=== PATIENT | male | born 1995 | race Caucasian/White ===

== ENCOUNTER 2024-10-07 11:32 | Outpatient (AMB) | payer MEDICARE, SELFPAY ==
--- NOTE | 2024-10-07 11:44 | A.OFFPC_ITS ---
Vital Signs 10/07/24 11:52 Height 5 ft 10.55 in Weight 159 lb 4 oz BMI 22.5 BP 130/68 Blood Pressure Location Lt brachial Position Sitting Respiration 12 Pulse 69 Pulse Source Pulse Oximeter Temp 98.7 F Temp Source Oral Pulse Oximetry (%) 99 Oxygen Delivery Method Room Air Intake Visit Reasons: referral to pain clinic Intake Note: New patient visit Senior Premium Auditor Required: No Allergies psych meds Adverse Reaction (Unknown, Uncoded 10/07/24 11:50) damage to brain receptors Medication List - Last Reconciled 10/07/24 by Joan Navarro PA-C No Known Home Meds Tobacco use date assessed: 10/07/24 Dental Screening Dental Screen Date: 10/07/24 Did you have a dental visit in the last 12 months?: Yes Did you have a dental problem in the last 6 months where you did not have access to dental care?: No Was dental information given to patient?: Patient has dentist HPI referral to pain clinic HPI Details Pt is a 29 year old male who presents today to [facility]. He reports a significant past medical history of tardive dyskinesia and tardive akathisia. There are a couple urgent care like notes that are scanned in from [facility] that do shows that he also has a significant past medical history of schizophrenia, substance abuse, depression, anxiety, He states that he mostly made this appointment so he could get a referral to Neurology and pain management. He states that he was diagnosed with tardive dyskinesia and tardive akathisia in 2019 when he started feeling weak, rigidity, pain and spastic, involuntary movements. He had an EMG in [place] he states that also showed peripheral neuropathy. He states that he was previously managed with a muscle relaxant, Flexeril, to use as needed. He states that he would like to use this again as he does not take this every day but he would like to have it on hand and he would like to see the specialists. He denies any other acute concerns today. He states that his symptoms remain overall stable. He denied any significant past medical history of mental health disorder. [facility] Family History (Updated 10/07/24 @ 12:05 by Pascale Lemons CMA) Maternal Grandfather Alcoholism Stomach cancer Father Diabetes Paternal Grandfather Skin cancer Mother Depression Sister Anxiety Other FH: mental illness Substance abuse Social History Housing: Apartment Patient Tobacco Use Status: Former Tobacco user Cigarette Packs Per Day: 2 Years Smoked: 8 e-Cigarette/Vaping Use: Currently Using service: No Current occupational status: disabled Cognitive needs: No Hearing needs: No Vision needs: No Questionnaire PHQ-9 Over the last 2 weeks, how often have you been bothered by any of the following problems? 1. Little interest or pleasure in doing things: more than half the days 2. Feeling down, depressed, or hopeless: more than half the days 3. Trouble falling or staying asleep, or sleeping too much: several days 4. Feeling tired or having little energy: more than half the days 5. Poor appetite or overeating: more than half the days 6. Feeling bad about yourself - or that you are a failure or have let yourself or your family down: not at all 7. Trouble concentrating on things, such as reading the newspaper or watching television: more than half the days 8. Moving or speaking so slowly that other people could have noticed. Or the opposite - being so fidgety or restless that you have been moving around a lot more than usual: more than half the days 9. Thoughts that you would be better off or of hurting yourself in some way: not at all Total score: 13 Depression Screening Interpretation: Positive Depression Screening Follow-up: Existing condition and Follow-up Visit Requested Depression Screening Done: Yes [id number] - PHQ-9 Billing: Yes Source: Developed by Drs. Diego Cruz, Jojo Ball, Link Stroud and colleagues, with an educational maco from [employer]. Thrive Questionnaire Date Thrive assessed: 09/30/24 I am a: Patient What is your living situation today?: I have a steady place to live Within the past 12 months, did the food you bought not last and you didn't have the money to get more?: Sometimes True Within the past 12 months, did you worry whether your food would run out before you got money to buy more?: Sometimes True Do you have trouble paying for medicines?: Yes Do you have trouble getting transportation to medical appointments?: No Do you have trouble paying your heating and electricity bill?: No Do you have trouble taking care of your child, family member or friend?: No Do you have trouble with day-to-day activities such as bathing, preparing meals, shopping, managing finances, etc.?: Yes Are you currently unemployed and looking for a job?: No Are you interested in more education?: Yes Please select the resources that you would like help with: None Currently or been in a relationship where the following occur: I choose not to answer THRIVE Score: 2 AUDIT C Alcohol Use Questionnaire (AUDIT-C) 1. How often do you have a drink containing alcohol?: 2-4 times a month 2. How many drinks containing alcohol do you have on a typical day when you are drinking?: 1 or 2 3. How often do you have six or more drinks on one occasion?: Never Total Score: 2 Score Reviewed/Action Taken: Yes GERI-7 AMB Questionnaire GERI-7 Feeling nervous, anxious, or on edge: 2 = More than half the days Not being able to stop or control worryin = More than half the days Worrying too much about different things: 2 = More than half the days Trouble relaxin = More than half the days Being so restless that it is hard to sit still: 2 = More than half the days Becoming easily annoyed or irritable: 1 = Several days Feeling afraid as if something awful might happen: 2 = More than half the days Total GERI-7 score (0-4 normal; 5-9 mild; 10-14 moderate; 15-21 severe): 13 Source: Developed by Drs. Diego Cruz, Jojo Ball, Link Stroud and colleagues, with an educational maco from [employer]. GERI-7 Assessment Billing GERI-7 Assessment Tool: GERI-7 Assessment [id number] Physical exam (Primary Care) Vital Signs: Last Vital Signs Temp 98.7 F 10/07/24 11:52 Pulse 69 10/07/24 11:52 Resp 12 10/07/24 11:52 BP 130/68 10/07/24 11:52 Pulse Ox 99 10/07/24 11:52 Oxygen Delivery Method Room Air 10/07/24 11:52 BMI result Body Mass Index 22.5 Tobacco/Smoking Status: Tobacco use Status Tobacco use date assessed 10/07/24 10/07/24 11:56 Patient Tobacco Use Status Former Tobacco user 10/07/24 11:56 e-Cigarette/Vaping Use Currently Using 10/07/24 11:56 PHQ-9: PHQ-9 Score PHQ-9: Total score 13 10/07/24 11:59 Depression Screening Interpretation: Positive Depression Screening Follow-up: Existing condition and Follow-up Visit Requested Thrive Assessment: Date of Thrive Assessment Date Thrive assessed 09/30/24 10/07/24 11:44 Currently or been in a relationship where the following occur: I choose not to answer Const Orientation/consciousness: patient oriented x3 HENMT Ears: hearing grossly normal bilaterally Neck Thyroid: Thyroid normal Lymphatic: no lymphadenopathy noted Resp Auscultation: clear to auscultation bilaterally Cardio Rate: regular rate Rhythm: regular rhythm Heart sounds: S1 normal heart sound present and S2 normal heart sound present GI Inspection: Yes normal to inspection Palpation (GI): Soft to palpation and Other GI palpation findings present (nontender, no cva tenderness) Auscultation: normoactive bowel sounds Rectal Exam - Male: Yes deferred Skin General skin exam: no rashes or lesions noted Neuro General: patient oriented x3, gait normal and no focal motor deficits Coding Level of Care Code New Pt Level 3 (96305) Complex EM visit Add On G2211 Diagnoses Tardive akathisia G25.71 Tardive dyskinesia G24.01 History of substance abuse F19.11 Generalized anxiety disorder F41.1 Schizophrenia F20.9 Major depression, chronic F32.9 Additional Codes PHQ-9 - 02284 - PHQ-9 Billing: Yes ([id number]) GERI-7 Assessment Billing - GERI-7 Assessment Tool: GERI-7 Assessment [id number] ([id number]) Assessment & Plan Assessment & Plan (1) Tardive akathisia: Code(s): G25.71 - Drug induced akathisia Category: Medical Plan: This is listed in the chart from [facility] ER record. I have referred him to Neurology and pain management. (2) Tardive dyskinesia: Code(s): G24.01 - Drug induced subacute dyskinesia Category: Medical Plan: As above. (3) History of substance abuse: Code(s): F19.11 - Other psychoactive substance abuse, in remission Category: Medical Plan: Denies (4) Generalized anxiety disorder: Code(s): F41.1 - Generalized anxiety disorder Category: Medical Plan: PHQ-9 and GERI-7 scores are high. We will review further at follow up. Denies any SI/HI. Overall feels well. (5) Schizophrenia: Code(s): F20.9 - Schizophrenia, unspecified Category: Medical Plan: As above (6) Major depression, chronic: Code(s): F32.9 - Major depressive disorder, single episode, unspecified Category: Medical Plan: As above. Patient wants to hold off on behavioral health consult at this time Orders: Orders Complete Blood Count Auto Diff 10/07/24 G2. - Drug induced subacute dyskinesia, . - Drug induced akathisia Microalbumin, Random (w Creat) 10/07/24 G2. - Drug induced subacute dyskinesia, G2. - Drug induced akathisia [place] Reflex Titer and Pattern 10/07/24. - Drug induced subacute dy skinesia, . - Drug induced akathisia Comprehensive [place]. Panel Fast 10/07/24. - Drug induced subacute dyskinesia, G2. - Drug induced akathisia UA CC w/rflx Micro + Cult 10/07/24 G2. - Drug induced subacute dyskinesia, G2. - Drug induced akathisia, Z13.220 - Encounter for screening for lipoid disorders TSH reflex Free T4 10/07/24 G24. - Drug induced subacute dyskinesia, G2.71 - Drug induced akathisia Erythrocyte Sedimentation Rate 10/07/24 G2. - Drug induced subacute dyskinesia, G2. - Drug induced akathisia Lipid Panel 10/07/24 G2. - Drug induced subacute dyskinesia, G2. - Drug induced akathisia Lyme IgG/IgM w/reflex to WB 10/07/24 G2. - Drug induced subacute dyskinesia, G25.71 - Drug induced akathisia Magnesium 10/07/24 G2. - Drug induced subacute dyskinesia, G2.71 - Drug induced akathisia Vitamin B12 and Folate 10/07/24 G2. - Drug induced subacute dyskinesia, G25.71 - Drug induced akathisia Referrals Neurology Referral - Drug induced subacute dyskinesia, G2. - Drug induced akathisia Pain Management Referral G24.01 - Drug induced subacute dyskinesia, G25.71 - Drug induced akathisia Medications: New cyclobenzaprine 10 mg PO BEDTIME PRN 30 tabs 3RF muscle spasm
[2024-10-07 11:52] VITALS: BP 130/68; PULSE 69; RESP 12; TEMP 37.1; O2SAT 99; BMI 22.5
== END 2024-10-07 12:08 | disposition home or self-care (01) ==
LOC: HO.HMCFM 11:33
PROVIDERS: PCP Physician Assistant; Visit Provider Physician Assistant
DX: G25.71 Drug induced akathisia (principal); G24.01 Drug induced subacute dyskinesia; F19.11 Other psychoactive substance abuse, in remission; F20.9 Schizophrenia, unspecified; F41.1 Generalized anxiety disorder; F32.9 Major depressive disorder, single episode, unspecified

== ENCOUNTER → 2024-10-07 11:32 | Outpatient (BNVA) | payer MEDICARE, SELFPAY | PROVIDERS: PCP Physician Assistant; Visit Provider Physician Assistant | DX: G25.71 Drug induced akathisia (principal); G24.01 Drug induced subacute dyskinesia; F41.1 Generalized anxiety disorder; F19.11 Other psychoactive substance abuse, in remission; F20.9 Schizophrenia, unspecified; F32.9 Major depressive disorder, single episode, unspecified | CPT/HCPCS: 96127; 99202 ==

== ENCOUNTER 2024-10-07 12:38 | Outpatient (REF) | payer MEDICARE, SELFPAY ==
[2024-10-07 14:14] LABS: MANUAL DIFF FLAG NO
[2024-10-07 14:23] LABS: Hematocrit 47.8 % (42.0-52.0); Hemoglobin 17.1 g/dl (14.0-18.0); Imm Gran Abs Auto 0.03 X10*3/uL (0.00-0.03); Imm Gran Pct Auto 0.4 % (0.0-0.4); Lymphocytes Absolute Auto 1.3 X10*3/uL (1.2-4.9); Mean Corpuscular HGB Conc 35.8 g/dl (31.0-36.0); Mean Corpuscular Hemoglobin 29.9 pg (27.0-33.0); Mean Corpuscular Volume 83.6 fL (80.0-98.0); NRBC Abs Auto 0.000 X10*3/uL (0.0-0.012); NRBC Pct Auto 0.0 /100WBC (0.0-0.2); Platelet Count 187 X10*3/uL (160-400); Red Blood Count 5.72 X10*6/uL (4.60-5.80); White Blood Count 6.7 X10*3/uL (4.8-10.8)
[2024-10-07 14:52] LABS: Alanine Aminotransferase 32 U/L (0-40); Albumin Level 5.7 g/dL (3.5-5.0); Alkaline Phosphatase 69 U/L (39-117); Anion Gap 13 (12-20); Aspartate Amino Transferase 32 U/L (5-37); Blood Urea Nitrogen 10 mg/dL (9-16); Calcium 9.8 mg/dL (8.4-10.2); Carbon Dioxide 29 mmol/L (22-29); Chloride 104 mmol/L (96-108); Cholesterol 200 mg/dL (<200); Estimated Glomerular Filt Rate > 60; HDL Cholesterol 70 mg/dL (>40); Magnesium 2.2 mg/dL (1.6-2.6); Potassium 4.0 mmol/L (3.3-5.1); Sodium 142 mmol/L (135-145); Total Protein 8.3 g/dL (6.5-8.0); Triglycerides 63 mg/dL (<150)
[2024-10-07 15:03] LABS: Folate 9.7 ng/mL (> or = 4.0); Vitamin B12 231 pg/mL (200-900)
[2024-10-07 17:51] LABS: Appearance Urine Clear; Glucose Urine UA Negative (Negative); PH 7.5 (5.0-9.0); Specific Gravity - Urine 1.010 (1.005-1.025)
[2024-10-07 18:31] LABS: Microalbum/Creatinine Ratio Ur 15.9 ug/mg cr (<30)
[2024-10-08 10:50] LABS: Lyme Abs Screen <0.90 index
[2024-10-11 11:43] LABS: Anti Nuclear Antibody Screen NEGATIVE (NEGATIVE)
== END 2024-10-07 12:39 | disposition home or self-care (01) ==
LOC: HO.WFDLDS 12:38
PROVIDERS: Visit Provider Physician Assistant
DX: Z13.220 Encounter for screening for lipoid disorders (principal); G25.71 Drug induced akathisia; G24.01 Drug induced subacute dyskinesia
CPT/HCPCS: 36415; 80053; 80061; 81003; 82043; 82570; 82607; 82746; 83735; 84443; 85025; 85652; 86038; 86617; 86618

== ENCOUNTER 2024-11-11 10:52 | Outpatient (AMB) | payer MEDICARE, SELFPAY ==
--- NOTE | 2024-11-11 11:04 | MHC.PC.OV ---
Vital Signs 11/11/24 11:05 Height 5 ft 10.55 in Weight 160 lb 4 oz BMI 22.6 BP 128/72 Blood Pressure Location Lt brachial Position Sitting Respiration 14 Pulse 58 Pulse Source Pulse Oximeter Pulse Oximetry (%) 100 Oxygen Delivery Method Room Air Intake Visit Reasons: MAWV 1 Month Intake Note: One month follow up Director Of Online Merchandising Required: No Allergies psych meds Adverse Reaction (Unknown, Uncoded 10/07/24 11:50) damage to brain receptors Tobacco use date assessed: 11/11/24 Dental Screening Dental Screen Date: 10/07/24 HPI MAWV 1 Month HPI Details Pt is a 29 year old male who presents today for a follow up. He reports a significant past medical history of tardive dyskinesia and tardive akathisia. There are a couple urgent care like notes that are scanned in from [facility] that do shows that he also has a significant past medical history of schizophrenia, substance abuse, depression, anxiey, Neuro: He states that he was diagnosed with tardive dyskinesia and tardive akathisia in 2019 when he started feeling weak, rigidity, pain and spastic, involuntary movements. He had an EMG in [place] he states that also showed peripheral neuropathy. Msk: He states that he was previously managed with a muscle relaxant, Flexeril, to use as needed. GI: He states that for 5 years he has loose stools every morning, inability to gain weight and decreased appetite. He states his weight is overall stable. He states when it initially presented he lost 50 lbs and had a full work up at [facility]. He had a double endoscopy and was told everything was ok. He states he has had CTs but does not recall of the abdomen. He states he had labs but does not recall testing for what in particular. No blood in the stool. No vomiting but he does get nauseous. He would like to see GI for this. He denied any significant past medical history of mental health disorder. [facility] Family History (Updated 10/07/24 @ 12:05 by Pascale Lemons CMA) Maternal Grandfather Alcoholism Stomach cancer Father Diabetes Paternal Grandfather Skin cancer Mother Depression Sister Anxiety Other FH: mental illness Substance abuse Social History Housing: Apartment Patient Tobacco Use Status: Former Tobacco user Cigarette Packs Per Day: 2 Years Smoked: 8 e-Cigarette/Vaping Use: Currently Using service: No Current occupational status: disabled Cognitive needs: No Hearing needs: No Vision needs: No Questionnaire Thrive Questionnaire Date Thrive assessed: 09/30/24 I am a: Patient What is your living situation today?: I have a steady place to live Within the past 12 months, did the food you bought not last and you didn't have the money to get more?: Sometimes True Within the past 12 months, did you worry whether your food would run out before you got money to buy more?: Sometimes True Do you have trouble paying for medicines?: Yes Do you have trouble getting transportation to medical appointments?: No Do you have trouble paying your heating and electricity bill?: No Do you have trouble taking care of your child, family member or friend?: No Do you have trouble with day-to-day activities such as bathing, preparing meals, shopping, managing finances, etc.?: Yes Are you currently unemployed and looking for a job?: No Are you interested in more education?: Yes Please select the resources that you would like help with: None Currently or been in a relationship where the following occur: I choose not to answer THRIVE Score: 2 Physical exam (Primary Care) Vital Signs: Last Vital Signs Pulse 58 11/11/24 11:05 Resp 14 11/11/24 11:05 BP 128/72 11/11/24 11:05 Pulse Ox 100 11/11/24 11:05 Oxygen Delivery Method Room Air 11/11/24 11:05 BMI result Body Mass Index 22.6 Tobacco/Smoking Status: Tobacco use Status Tobacco use date assessed 11/11/24 11/11/24 11:08 Patient Tobacco Use Status Former Tobacco user 11/11/24 11:06 e-Cigarette/Vaping Use Currently Using 11/11/24 11:06 Thrive Assessment: Date of Thrive Assessment Date Thrive assessed 09/30/24 11/11/24 11:06 Currently or been in a relationship where the following occur: I choose not to answer Const Orientation/consciousness: patient oriented x3 HENMT Ears: hearing grossly normal bilaterally Neck Thyroid: Thyroid normal Lymphatic: no lymphadenopathy noted Resp Auscultation: clear to auscultation bilaterally Cardio Rate: regular rate Rhythm: regular rhythm Heart sounds: S1 normal heart sound present and S2 normal heart sound present GI Inspection: Yes normal to inspection Palpation (GI): Soft to palpation and Other GI palpation findings present (nontender, no cva tenderness) Auscultation: normoactive bowel sounds Rectal Exam - Male: Yes deferred Skin General skin exam: no rashes or lesions noted Neuro General: patient oriented x3, gait normal and no focal motor deficits Coding Level of Care Code Est Pt Level 4 (07340) Complex EM visit Add On G2211 Diagnoses Frequent loose stools R19.7 Abdominal bloating R14.0 Decreased appetite R63.0 Assessment & Plan Assessment & Plan (1) Frequent loose stools: Code(s): R19.7 - Diarrhea, unspecified Category: Medical Plan: Labs ordered. We will follow up pending test results (2) Abdominal bloating: Code(s): R14.0 - Abdominal distension (gaseous) Category: Medical Plan: As above. Ultrasound ordered. Referral to GI (3) Decreased appetite: Code(s): R63.0 - Anorexia Category: Medical Plan: As above Plan Short term follow up. Sooner if needed. Patient understands and agrees with the plan. Orders: Orders Complete Blood Count Auto Diff Today R14.0 - Abdominal distension (gaseous), R19.7 - Diarrhea, unspecified, R63.0 - Anorexia Liver Panel Today R14.0 - Abdominal distension (gaseous), R19.7 - Diarrhea, unspecified, R63.0 - Anorexia US abdomen complete Today R14.0 - Abdominal distension (gaseous), R19.7 - Diarrhea, unspecified, R63.0 - Anorexia C Reactive Protein Today R14.0 - Abdominal distension (gaseous), R19.7 - Diarrhea, unspecified, R63.0 - Anorexia Basic Metabolic Panel Today R14.0 - Abdominal distension (gaseous), R19.7 - Diarrhea, unspecified, R63.0 - Anorexia Erythrocyte Sedimentation Rate Today R14.0 - Abdominal distension (gaseous), R19.7 - Diarrhea, unspecified, R63.0 - Anorexia H pylori Ag Stool Today R14.0 - Abdominal distension (gaseous), R19.7 - Diarrhea, unspecified, R63.0 - Anorexia Referrals Gastroenterology Referral R14.0 - Abdominal distension (gaseous), R19.7 - Diarrhea, unspecified, R63.0 - Anorexia
[2024-11-11 11:05] VITALS: BP 128/72; PULSE 58; RESP 14; O2SAT 100; BMI 22.6
== END 2024-11-11 11:25 | disposition home or self-care (01) ==
LOC: HO.HMCFM 10:53
PROVIDERS: PCP Physician Assistant; Visit Provider Physician Assistant
DX: R19.7 Diarrhea, unspecified (principal); R14.0 Abdominal distension (gaseous); R63.0 Anorexia

== ENCOUNTER 2024-11-11 10:52 | Outpatient (REF) | payer MEDICARE, SELFPAY ==
[2024-11-11 14:05] LABS: MANUAL DIFF FLAG NO
[2024-11-11 14:12] LABS: Hematocrit 45.6 % (42.0-52.0); Hemoglobin 15.8 g/dl (14.0-18.0); Imm Gran Abs Auto 0.02 X10*3/uL (0.00-0.03); Imm Gran Pct Auto 0.4 % (0.0-0.4); Lymphocytes Absolute Auto 1.4 X10*3/uL (1.2-4.9); Mean Corpuscular HGB Conc 34.6 g/dl (31.0-36.0); Mean Corpuscular Hemoglobin 29.9 pg (27.0-33.0); Mean Corpuscular Volume 86.2 fL (80.0-98.0); NRBC Abs Auto 0.000 X10*3/uL (0.0-0.012); NRBC Pct Auto 0.0 /100WBC (0.0-0.2); Platelet Count 159 X10*3/uL (160-400); Red Blood Count 5.29 X10*6/uL (4.60-5.80); White Blood Count 5.2 X10*3/uL (4.8-10.8)
[2024-11-11 14:47] LABS: Erythrocyte Sedimentation Rate 2 MM/HR (0-15)
[2024-11-11 18:49] LABS: Alanine Aminotransferase 27 U/L (0-40); Albumin Level 5.3 g/dL (3.5-5.0); Alkaline Phosphatase 55 U/L (39-117); Anion Gap 12 (12-20); Aspartate Amino Transferase 25 U/L (5-37); Blood Urea Nitrogen 8 mg/dL (9-16); Calcium 9.6 mg/dL (8.4-10.2); Carbon Dioxide 28 mmol/L (22-29); Chloride 107 mmol/L (96-108); Estimated Glomerular Filt Rate > 60; Potassium 4.5 mmol/L (3.3-5.1); Sodium 142 mmol/L (135-145); Total Protein 7.5 g/dL (6.5-8.0)
== END 2024-11-11 10:53 | disposition home or self-care (01) ==
LOC: HO.WFDLDS 10:52
PROVIDERS: PCP Physician Assistant; Visit Provider Physician Assistant
DX: R14.0 Abdominal distension (gaseous) (principal); R63.0 Anorexia; R19.7 Diarrhea, unspecified; F17.210 Nicotine dependence, cigarettes, uncomplicated
CPT/HCPCS: 36415; 80048; 80076; 85025; 85652; 86140; 99212

== ENCOUNTER 2025-01-18 10:31 | Outpatient (REF) | payer MEDICARE, SELFPAY ==
--- NOTE | ~2025-01-18 | US_ITS ---
CLINICAL HISTORY: R19.7 - abd bloating, decrease in appetite Ultrasound of the abdomen Comparison: None available Findings: The liver is normal in size, measuring 13.8cm. Normal echogenicity without focal lesions. Flow is visualized within the portal vein. No intrahepatic biliary ductal dilatation. No cholelithiasis. No gallbladder wall thickening or pericholecystic fluid. Negative De Paz's sign. The common bile duct is normal, measuring 0.4cm. Unremarkable limited evaluation of the pancreas. The right kidney is normal in echogenicity and size, measuring 10.7cm. No nephrolithiasis or hydronephrosis. The left kidney is normal echogenicity and size, measuring 10.8cm. No nephrolithiasis or hydronephrosis. The spleen is without focal lesions and normal in size, measuring 12.3cm. The aorta and IVC are unremarkable. No ascites. Impression: Normal abdominal ultrasound. This document has been electronically signed by: Penny Guido MD on 01/19/2025 23:01:24
== END 2025-01-18 10:32 | disposition home or self-care (01) ==
LOC: HO.US 10:31
PROVIDERS: PCP Physician Assistant; Visit Provider Physician Assistant
DX: R14.0 Abdominal distension (gaseous) (principal); R63.0 Anorexia; R19.7 Diarrhea, unspecified
CPT/HCPCS: 76700; 87338

== ENCOUNTER → 2025-01-18 10:32 | Outpatient (BNV) | payer MEDICARE, SELFPAY | PROVIDERS: PCP Physician Assistant; Visit Provider Radiology Diagnostic Radiology | DX: R19.7 Diarrhea, unspecified (principal) | CPT/HCPCS: 76700 ==

== ENCOUNTER 2025-02-22 11:08 | Outpatient (AMB) | payer MEDICARE, SELFPAY ==
[2025-02-22 11:21] VITALS: BP 133/79; PULSE 72; BMI 23.7
--- NOTE | 2025-02-22 11:21 | A.OFFVIS_ITS ---
Vital Signs 02/22/25 11:21 Height 5 ft 10 in Weight 165 lb BMI 23.7 BP 133/79 Blood Pressure Location Lt brachial Position Sitting Pulse 72 Intake Visit Reasons: Diarrhea Intake Note: Patient new consult for diarrhea. Patient cc: abdominal discomfort, and diarrhea daily. Denies any other GI issues. 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 Referred by PCP for further evaluation of chronic diarrhea. His symptoms began in [id number] following neurological symptoms of tardive dyskinesia from psychopharmacological management. Shares GI symptoms resolve upon discontinuation of these medications. He reports daily diarrhea, with stools ranging from [place] type 4 to type 7. He also experiences indigestion, bloating, symptoms worsening with high-fiber foods, and seeing undigested food in his stool. He denies any blood in the stool, dark stools, abdominal pain, or vomiting. Associated symptoms include a decreased appetite since 2020 and significant weight loss at the initial onset of symptoms in 2018, though his weight has objectively been stable since at least September 2024. A prior GI workup at [facility] was negative, including an upper endoscopy and colonoscopy in 2022. He had a negative H. pylori test in January 2025, and a normal CBC, CMP November 2024. Also normal abdominal ultrasound in January 2025, which showed no gallstones or liver abnormalities. Shared pyrosis resolved after smoking cessation. Patient denies: fever/chills, vomiting, regurgitation,dysphasia, ab pain or melena/hematochezia. Social hx: -ETOH use He reports consuming one or two beers or hard ciders per month. -smokes marijuana daily and will occasionally consume edibles, but denies any other recreational drug use. -former smoker, cessation 2020. Current daily vaping - family hx as below -denies personal hx of CA -denies significant cardiopulmonary history -tolerated anesthesia in the past without difficulty. [facility] Family History Maternal Grandfather Alcoholism Stomach cancer Father Diabetes Paternal Grandfather Skin cancer Mother Depression Sister Anxiety Other FH: mental illness Substance abuse Social History Housing: Apartment Patient Tobacco Use Status: Former Tobacco user Cigarette Packs Per Day: 2 Years Smoked: 8 e-Cigarette/Vaping Use: Currently Using service: No Current occupational status: disabled Cognitive needs: No Hearing needs: No Vision needs: No Review of Systems Const Reports as per HPI ENT Reports as per HPI Card Reports as per HPI Resp Reports as per HPI GI Reports as per HPI Reports as per HPI Physical Exam Const General: healthy appearing, no acute distress and well developed Nutritional Appearance: average body habitus Orientation/consciousness: patient oriented x3 HEENT Head: Yes normal to inspection, Yes normocephalic and Yes atraumatic Face and sinus: Yes normal facial exam Eyes General: appearance normal, both eyes and all related structures Neck Neck: Yes normal visual inspection Resp Effort & Inspection: normal respiratory effort, able to speak in complete sentences, no tracheal deviation and symmetric chest movement Auscultation: clear to auscultation bilaterally Cardio Jugular venous distension: no JVD Rate: regular rate Rhythm: regular rhythm Heart sounds: S1 normal heart sound present, S2 normal heart sound present, no gallops and no murmurs GI Inspection: Yes normal to inspection and No distended Palpation (GI): Soft to palpation, not firm, nontender and No hepatosplenomegaly present Auscultation: normal bowel sounds Neuro General: patient oriented x3 Gait exam (Neuro): Normal gait present Psych Appearance: grossly normal Mental Status: mental status grossly normal Speech and movement: Normal speech and movement present Affect: normal affect Attitude: cooperative Thought process: Normal thought process present Thought content: Normal thought content present Insight: Good insight present (Psych) Judgement: Good judgement present (Psych) Results Reviewed Results Reviewed: Date of Service: 01/18/25 Procedure(s): US abdomen complete Accession Number(s): [id number] cc: Joan Navarro~ Reason for Exam: R19.7 - abd bloating, decrease in appetite CLINICAL HISTORY: R19.7 - abd bloating, decrease in appetite Ultrasound of the abdomen Comparison: None available Findings: The liver is normal in size, measuring 13.8cm. Normal echogenicity without focal lesions. Flow is visualized within the portal vein. No intrahepatic biliary ductal dilatation. No cholelithiasis. No gallbladder wall thickening or pericholecystic fluid. Negative De Paz's sign. The common bile duct is normal, measuring 0.4cm. Unremarkable limited evaluation of the pancreas. The right kidney is normal in echogenicity and size, measuring 10.7cm. No nephrolithiasis or hydronephrosis. The left kidney is normal echogenicity and size, measuring 10.8cm. No nephrolithiasis or hydronephrosis. The spleen is without focal lesions and normal in size, measuring 12.3cm. The aorta and IVC are unremarkable. No ascites. Impression: Normal abdominal ultrasound. This document has been electronically signed by: Penny Guido MD on 01/19/2025 23:01:24 Assessment & Plan Assessment & Plan (1) Abdominal bloating: Code(s): R14.0 - Abdominal distension (gaseous) Category: Medical Plan: Chronic. reassuring workup thus far. Cannot exclude gastroparesis secondary to medication VS functional dyspepsia. To address the patient's concern about his pancreas, pancreatic enzymes will be ordered, although reassured with normal ultrasound. - A gastric emptying study will be ordered. - Stool testing will be ordered to check for colonic inflammation, infection, and ova/parasites. - Testing for fat-soluble vitamin deficiencies will be performed. - An HbA1c will be ordered, though concern for diabetes is low given his normal fasting glucose. - The patient was urged to try an elimination diet and was provided with a handout on a low-FODMAP diet. - Follow-up will occur after the gastric emptying study is completed. - The patient was advised that no news is good news regarding labs and that any concerning results will be communicated via the patient portal prior to his follow-up. (2) Decreased appetite: Code(s): R63.0 - Anorexia Category: Medical Plan: as above Plan Follow-up after GES or sooner as needed Time: I spent a total of 45 minutes on the date of encounter which includes: Preparing to see the patient (reviewed previous documentation, test results and medical history) Performing a medically appropriate exam and/or evaluation Ordering medications, tests, and procedures Documenting clinical information in the health record Orders: Orders GI Panel Today R14.0 - Abdominal distension (gaseous), R63.0 - Anorexia Vitamin K1 Today R14.0 - Abdominal distension (gaseous), R63.0 - Anorexia Leukocytes Stool Qualitative Today R14.0 - Abdominal distension (gaseous), R63.0 - Anorexia Fecal Fat Qualitative Today R14.0 - Abdominal distension (gaseous), R63.0 - Anorexia NM gastric emptying study Today R14.0 - Abdominal distension (gaseous), R63.0 - Anorexia CDiff Gene PCR Today R14.0 - Abdominal distension (gaseous), R63.0 - Anorexia Calprotectin, Fecal Today R14.0 - Abdominal distension (gaseous), R63.0 - Anorexia C Reactive Protein Today R14.0 - Abdominal distension (gaseous), R63.0 - Anorexia Vitamin E Today R14.0 - Abdominal distension (gaseous), R63.0 - Anorexia Vitamin A Today R14.0 - Abdominal distension (gaseous), R63.0 - Anorexia Vitamin D 1,25 dihydroxy Today R14.0 - Abdominal distension (gaseous), R63.0 - Anorexia Hemoglobin A1c Today R14.0 - Abdominal distension (gaseous), R63.0 - Anorexia Lipase Today R14.0 - Abdominal distension (gaseous), R63.0 - Anorexia Amylase Today R14.0 - Abdominal distension (gaseous), R63.0 - Anorexia Coding Level of Care Code New Pt New Pt Level 4 (97812) Patient Type New Diagnoses Abdominal bloating R14.0 Decreased appetite R63.0
== END 2025-02-22 11:55 | disposition home or self-care (01) ==
LOC: HO.HGI 11:09
PROVIDERS: PCP Physician Assistant; Visit Provider Nurse Practitioner Family
DX: R14.0 Abdominal distension (gaseous) (principal); R63.0 Anorexia
CPT/HCPCS: 99204

== ENCOUNTER 2025-02-22 11:08 | Outpatient (REF) | payer MEDICARE, SELFPAY ==
[2025-02-22 13:33] LABS: Amylase 64 U/L (28-100); Lipase 24 U/L (8-78)
== END 2025-02-22 11:09 | disposition home or self-care (01) ==
LOC: HO.LAB 11:08
PROVIDERS: PCP Physician Assistant; Visit Provider Nurse Practitioner Family
DX: R14.0 Abdominal distension (gaseous) (principal); R63.0 Anorexia; Z13.1 Encounter for screening for diabetes mellitus; Z13.21 Encounter for screening for nutritional disorder
CPT/HCPCS: 36415; 82150; 82652; 83036; 83690; 84446; 84590; 84597; 86140